=== PATIENT | female | born 1975 | race Two or more races ===

== ENCOUNTER 2016-07-30 11:11 | Emergency (ER) | payer SELFPAY ==
[2016-07-30 11:18] VITALS: BP 120/69
[2016-07-30] MEDS ORDERED: TETRACAINE HCL 0.5% OPH SOLN 2 ML OS ONE (12:04)
--- NOTE | 2016-07-30 12:44 | ER Document Report ---
ED Eye Complaint - General Chief Complaint: Eye Pain Stated Complaint: EYE PROBLEM Time Seen by Provider: 07/30/16 12:00 Information source: Patient TRAVEL OUTSIDE OF THE [place] IN LAST 30 DAYS: No - HPI Onset: This morning Eye location: Left Injury: No Quality of pain: No pain Safety glasses worn: No Contact lenses worn: No Associated symptoms: Itching - Related Data Allergies/Adverse Reactions: No Known Allergies Allergy (Unverified 07/30/16 11:18) Past Medical History - Social History Smoking Status: Unknown if Ever Smoked Family History: Reviewed & Not Pertinent Patient has suicidal ideation: No Patient has homicidal ideation: No Renal/ Medical History: Denies: Hx Peritoneal Dialysis Review of Systems - Review of Systems Constitutional: No symptoms reported EENT: See HPI -: Yes All other systems reviewed and negative Physical Exam - Vital signs Vitals: Temp Pulse Resp BP Pulse Ox 98.4 F 69 16 120/69 100 07/30/16 11:16 07/30/16 11:16 07/30/16 11:16 07/30/16 11:16 07/30/16 11:16 - HEENT Head: Normocephalic, Atraumatic Eyes: Normal Conjunctiva: Injected Cornea: Normal Extraocular movements intact: Yes Eyelashes: Normal Pupils: PERRL Visual acuity- Right eye: 20/20 Visual acuity- Left eye: 20/20 Visual acuity- Both eyes: 20/20 Corrective lenses worn: No Lids everted for exam: left: Normal Anterior chamber: Normal Fundascopic: Normal Visual lang normal: Yes Ears: Normal External canal: Normal Tympanic membrane: Normal Sinus: Normal Nasal: Normal Mouth/Lips: Normal Mucous membranes: Normal Pharynx: Normal Neck: Normal - Skin Skin Temperature: Warm Skin Moisture: Dry Skin Color: Normal Skin Turgor: Elastic Course - Re-evaluation Re-evalutation: 07/30/16 12:44 Patient is a 40-year-old female consistent with conjunctivitis of the left eye. No concern for glaucoma, retinal detachment, globe injury given no history of trauma and pain free. Will treat with Polytrim antibiotic drops and can follow- up with ophthalmology as needed - Vital Signs Vital signs: Temp Pulse Resp BP Pulse Ox 98.4 F 69 16 120/69 100 07/30/16 11:16 07/30/16 11:16 07/30/16 11:16 07/30/16 11:16 07/30/16 11:16 Discharge - Discharge Clinical Impression: Eye irritation Condition: Good Disposition: HOME, SELF-CARE Instructions: Antihistamines ([facility]), Eyedrop Use ([facility]) Referrals: JENA PRIETO MD [ACTIVE STAFF] - Follow up as needed
[2016-07-30] MEDS ORDERED: POLYMYXIN B SULFATE/TMP OPH SOLN (10 ML/ER DISP) OS SCH (12:45)
== END 2016-07-30 13:18 | disposition home or self-care (01) ==
LOC: ER 11:11
DX: H10.9 Unspecified conjunctivitis (principal)
CPT/HCPCS: 99283; J3490